=== PATIENT | female | born 1995 | race Caucasian/White ===

== ENCOUNTER 2017-02-03 22:15 | Emergency (ER) | payer MEDICAID ==
[~2017-02-03] VITALS: Ht 175.3 cm; Wt 92.0 kg
[~2017-02-03 22:15] MED LIST: AMOX500T PO; BUPR-175 PO; IBUP800T23 PO; LATU40TA PO; MMW SWISH-SPIT; SERT100 PO; XANA0.5T PO
[2017-02-03 22:18] VITALS: BP 141/85; PULSE 102; RESP 16; TEMP 98.8; O2SAT 99
[2017-02-03] MEDS ORDERED: ACYC200C66 PO (23:32)
[2017-02-03] MEDS ORDERED: CLOTR1%T TOPICAL (23:32)
--- NOTE | 2017-02-03 23:35 | PD ---
HPI Chief Complaint: Medical Clearance Time Seen by Provider: 23:25 Travel History International Travel<30 days: No Contact w/Intl Traveler<30days: No Traveled to known affect area: No History of Present Illness HPI 21-year-old female presents for evaluation. She reports that she developed a sore in her upper lip today. She also developed a circular rash on her left forearm. The rash is mildly itching, the sore on her lip mendoza some. She is around this problem in the past, no history of herpes labialis but she does report a history of herpes simplex infection of some sort. She was sent home from work today and encouraged to come here to get a note to return to work. She has no other complaints. PFSH Past Medical History Bipolar Disorder: Yes Anxiety: Yes Depression: Yes Diabetes: No Diminished Hearing: No Psychiatric: Yes Immunizations Current: Yes ?: Not LMP: TUBAL : 4 Para: 2 Miscarriage: 2 Ovarian Cysts: Yes Tubal Ligation: Yes Past Surgical History Section: No Social History Alcohol Use: No Tobacco Use: No Substance Use: No Allergies-Medications (Allergen,Severity, Reaction): Coded Allergies: PEANUTS (Verified Allergy, Severe, SWELLING, 02/03/17) Reported Meds & Prescriptions Reported Meds & Active Scripts Active Clotrimazole Topical (Clotrimazole) 1% Soln 1 Applic TOPICAL BID 21 Days Acyclovir 200 Mg Cap 200 Mg PO 5 TIMES A DAY 7 Days Ibuprofen 800 Mg Tab 800 Mg PO Q6H PRN Magic Mouthwash-Diphenhy Formula (Lidocaine/Diphenhydr/Alum/Mg/Simeth) Ml 5 Ml SWISH-SPIT Q3H PRN MAGIC MOUTHWASH=MIX 1/3 VISCOUS LIDOCAINE(80 ML), 1/3 MAALOX(80 ML),AND 1/3 BENADRYL(80 ML) TO EQUAL 240 ML TOTAL VOLUME. Amoxicillin 500 Mg Cap 500 Mg PO BID 10 Days Reported Wellbutrin (Bupropion HCl) 75 Mg Tab Unknown Dose PO DAILY Latuda (Lurasidone HCl) 40 Mg Tab 40 Mg PO DAILY Zoloft (Sertraline HCl) 100 Mg Tab 100 Mg PO DAILY Xanax 0.5 mg (Alprazolam) Alprazolam 0.5 mg Tab 1 Tab PO TID Review of Systems HENT: Positive: Other (lip sore) Skin: Positive Rash, Positive Itching Physical Exam Narrative GENERAL: Well-nourished female in no acute distress SKIN: Warm and dry. Singular annular lesion noted on the left forearm consistent with tinea corporis HEAD: Atraumatic. Normocephalic. EYES: Pupils equal and round. No scleral icterus. No injection or drainage. ENT: No nasal bleeding or discharge. Mucous membranes pink and moist. Singular vesicle lesion on the upper lip. NECK: Trachea midline. No JVD. Data Data Last Documented VS Vital Signs Date Time Temp Pulse Resp B/P Pulse Ox O2 Delivery O2 Flow Rate FiO2 02/03/17 22:18 98.8 102 16 141/85 99 Room Air MDM Medical Decision Making Medical Screen Exam Complete: Yes Emergency Medical Condition: Yes Medical Record Reviewed: Yes Differential Diagnosis Tinea corporis, pityriasis rosea, herpes labialis, contact dermatitis Narrative Course Examination reveals mild herpes labialis and tenia corporis. She is being discharged with acyclovir and clotrimazole cream. Diagnosis Primary Impression: Herpes labialis Additional Impression: Tinea corporis Departure Forms: Tests/Procedures, Work Release Enter return to work date: Feb 04, 2017 Additional Instructions: Medication as prescribed. Follow-up with primary care as needed and return for any emergent medical conditions. Med/Other Pt SpecificInfo: Prescription(s) given Scripts Clotrimazole Topical 1% Soln1 Applic TOPICAL BID 21 Days Ref 0 Prov:Raymond Betts MD 02/03/17 Acyclovir 200 Mg [id number] Mg PO 5 TIMES A DAY 7 Days Ref 0 Prov:Raymond Betts MD 02/03/17 Disposition: 01 DISCHARGE HOME Condition: Stable Ghulam Busch Feb 03, 2017 23:35
== END 2017-02-03 23:59 | disposition home or self-care (01) ==
LOC: NEPK 22:15
DX: B00.1 Herpesviral vesicular dermatitis (principal); B35.4 Tinea corporis
CPT/HCPCS: 99282

== ENCOUNTER 2017-09-28 07:35 | Emergency (ER) | payer MEDICAID ==
[~2017-09-28] VITALS: Ht 172.7 cm; Wt 91.5 kg
[~2017-09-28 07:35] MED LIST changes: +ACYC200C66 PO; -AMOX500T PO; -BUPR-175 PO; -IBUP800T23 PO; -LATU40TA PO; -MMW SWISH-SPIT; -SERT100 PO; -XANA0.5T PO
[2017-09-28 07:36] VITALS: BP 119/89; PULSE 100; RESP 20; TEMP 98.9; O2SAT 99
[2017-09-28] MEDS ORDERED: ONDANSETRON HCL 4 MG/2 ML VIAL IV PUSH ONE (08:15)
[2017-09-28] MEDS ORDERED: IBUPROFEN 800 MG TAB PO ONE (08:15)
[2017-09-28] MEDS ORDERED: SODIUM CHLOR 0.9% 1000 ML INJ 1,000 ML IV ONE (08:15)
--- NOTE | 2017-09-28 08:17 | PD ---
HPI Chief Complaint: GI Complaint Time Seen by Provider: 08:07 Travel History International Travel<30 days: No Contact w/Intl Traveler<30days: No Traveled to known affect area: No History of Present Illness HPI 22-year-old female presents to states cough congestion and nausea vomiting diarrhea. Patient states started 4 days ago. She states it started as a cough and congestion. She reports that she has pain under her eyes bilaterally. She states when she coughs and blows her nose there is blood tinged to the mucus. No reported fevers, chills. There is no reported ill contacts. The patient has no vaginal discharge or urinary symptoms. She has had her tubes tied previously. There are no other complaints at this time. PFSH Past Medical History Bipolar Disorder: Yes Anxiety: Yes Depression: Yes Diabetes: No Diminished Hearing: No Psychiatric: Yes Immunizations Current: Yes ?: Not LMP: IRREGULAR : 5 Para: 3 Miscarriage: 2 Ovarian Cysts: Yes Tubal Ligation: Yes Past Surgical History Section: No Social History Alcohol Use: No Tobacco Use: No Substance Use: No Allergies-Medications (Allergen,Severity, Reaction): Coded Allergies: peanut (Unverified Allergy, Severe, SWELLING, 09/28/17) Reported Meds & Prescriptions Reported Meds & Active Scripts Active Tussin Dm Max Adult Liq (Dextromethorphan-Guaifenesin Liq) 10-200 Mg/5 Ml Liq 5 Ml PO Q4H PRN Augmentin (Amoxicillin-Clavulanate) 875-125 Mg Tab 1 Tab PO BID 10 Days Review of Systems Except as stated in HPI: all other systems reviewed are Neg General / Constitutional: No: Fever, Chills Eyes: No: Diploplia, Redness HENT: Positive: Rhinorrhea, Congestion, Nosebleed (like tinged when she blows her nose.), Other (axillary sinus tenderness), No: Headaches, Neck Pain Cardiovascular: No: Chest Pain or Discomfort, Palpitations Respiratory: No: Cough, Shortness of Breath Genitourinary: No: Frequency, Dysuria, Discharge Musculoskeletal: No: Weakness, Pain Neurologic: No: Weakness, Dizziness, Headache Physical Exam Narrative GENERAL: Well-nourished, well-developed patient, in no acute distress. SKIN: Focused skin assessment warm/dry. HEAD: Normocephalic last atraumatic. EYES: No scleral icterus. No injection or drainage. Extraocular muscles were intact. There is tenderness in her maxillary sinus distribution bilaterally. No redness. NECK: Supple, trachea midline. CARDIOVASCULAR: Regular rate and rhythm without murmurs, gallops, or rubs. RESPIRATORY: Breath sounds equal bilaterally. No accessory muscle use. Mild rhonchi in the upper airways bilaterally. GASTROINTESTINAL: Abdomen soft, non-tender, nondistended. MUSCULOSKELETAL: No cyanosis, or edema. NEUROLOGICAL: Awake and alert. Cranial nerves II through XII intact. Motor grossly within normal limits. Five out of 5 muscle strength in all muscle groups. Normal speech. Data Data Last Documented VS Vital Signs Date Time Temp Pulse Resp B/P (MAP) Pulse Ox O2 Delivery O2 Flow Rate FiO2 09/28/17 09:15 70 16 117/60 (79) 98 Room Air 09/28/17 07:36 98.9 Orders Orders Complete Blood Count With Diff (09/28/17 08:07) Basic Metabolic Panel (Bmp) (09/28/17 08:07) Influenzae A/B Antigen (09/28/17 08:07) Chest, Single Ap (09/28/17 08:07) Iv Access Insert/Monitor (09/28/17 08:07) Ecg Monitoring (09/28/17 08:07) Oximetry (09/28/17 08:07) Sodium Chlor 0.9% 1000 Ml Inj (Ns 1000 M (09/28/17 08:15) Ibuprofen (Motrin) (09/28/17 08:15) Ondansetron Inj (Zofran Inj) (09/28/17 08:15) Labs Laboratory Tests Test 09/28/17 08:17 White Blood Count 11.4 TH/MM3 Red Blood Count 4.40 MIL/MM3 Hemoglobin 14.0 GM/DL Hematocrit 41.3 % Mean Corpuscular Volume 93.9 FL Mean Corpuscular Hemoglobin 31.9 PG Mean Corpuscular Hemoglobin Concent 34.0 % Red Cell Distribution Width 13.8 % Platelet Count 271 TH/MM3 Mean Platelet Volume 7.1 FL Neutrophils (%) (Auto) 80.8 % Lymphocytes (%) (Auto) 10.6 % Monocytes (%) (Auto) 7.8 % Eosinophils (%) (Auto) 0.5 % Basophils (%) (Auto) 0.3 % Neutrophils # (Auto) 9.2 TH/MM3 Lymphocytes # (Auto) 1.2 TH/MM3 Monocytes # (Auto) 0.9 TH/MM3 Eosinophils # (Auto) 0.1 TH/MM3 Basophils # (Auto) 0.0 TH/MM3 CBC Comment DIFF FINAL Differential Comment Blood Urea Nitrogen 12 MG/DL Creatinine 0.86 MG/DL Random Glucose 81 MG/DL Calcium Level 9.3 MG/DL Sodium Level 134 MEQ/L Potassium Level 4.3 MEQ/L Chloride Level 102 MEQ/L Carbon Dioxide Level 28.0 MEQ/L Anion Gap 4 MEQ/L Estimat Glomerular Filtration Rate 81 ML/MIN MDM Medical Decision Making Medical Screen Exam Complete: Yes Emergency Medical Condition: Yes Differential Diagnosis Maxillary sinusitis versus influenza versus bronchitis Narrative Course 22-year-old female presents today with complaints of sinus congestion and cough. The patient denies any fevers, chills. White count is slightly elevated. The patient has tenderness over her maxillary sinuses. The patient' s chest x-ray shows no evidence of acute infiltrate. She'll be treated with Augmentin for the sinus infection. She will also be given a prescription for Tussi DM with dextromethorphan. She is instructed to return if she develops any worsening symptoms. Diagnosis Primary Impression: Sinusitis Additional Impression: Bronchitis Additional Instructions: Return if feeling worse. Med/Other Pt SpecificInfo: Prescription(s) given Scripts Dextromethorphan-Guaifenesin Liq (Tussin Dm Max Adult Liq) 10-200 Mg/5 Ml Liq 5 ML PO Q4H Y for CHEST CONGESTION AND/OR COUGH, #120 ML 0 Refills Prov: Koffi Lake MD 09/28/17 Amoxicillin-Clavulanate (Augmentin) 875-125 Mg Tab 1 TAB PO BID for Infection for 10 Days, #20 TAB 0 Refills Prov: Koffi Lake MD 09/28/17 Disposition: 01 DISCHARGE HOME Condition: Stable Koffi Lake MD Sep 28, 2017 08:17
[2017-09-28 08:38] LABS: AUTOMATED NEUTROPHIL # 9.2 TH/MM3 (1.8-7.7); BASOPHIL % 0.3 % (0.0-2.0); EOSINOPHIL # 0.1 TH/MM3 (0-0.4); EOSINOPHIL % 0.5 % (0.0-4.0); HEMATOCRIT 41.3 % (35.0-46.0); HEMO FLAGS DIFF FINAL; LYMPH % 10.6 % (9.0-44.0); LYMPHOCYTE # 1.2 TH/MM3 (1.0-4.8); MEAN CELL VOLUME 93.9 FL (80.0-100.0); MEAN CORPUSCULAR HEMOGLOBIN 31.9 PG (27.0-34.0); MONO % 7.8 % (0.0-8.0); NEUT % 80.8 % (16.0-70.0); PLATELET COUNT 271 TH/MM3 (150-450); RED CELL DISTRIBUTION WIDTH 13.8 % (11.6-17.2); WHITE BLOOD COUNT 11.4 TH/MM3 (4.0-11.0)
--- NOTE | 2017-09-28 08:47 | RADRPT ---
EXAM DATE/TIME: 09/28/2017 08:32 [facility] COMPARISON: No previous studies available for comparison. INDICATIONS : Cough and sinus congestion. MEDICAL HISTORY : None. SURGICAL HISTORY : Tubal ligation. ENCOUNTER: Initial ACUITY: 4 - 6 days PAIN SCORE: 0/10 LOCATION: Bilateral chest FINDINGS: A single view of the chest demonstrates the lungs to be symmetrically aerated without evidence of mas s, infiltrate or effusion. The cardiomediastinal contours are unremarkable. Osseous structures are intact. CONCLUSION: No acute disease. Red Kovacs Jr., MD on September 28, 2017 at 8:44 Board Certified Radiologist. This report was verified electronically.
[2017-09-28 08:56] LABS: POTASSIUM 4.3 MEQ/L (3.5-5.1)
[2017-09-28 09:15] VITALS: BP 117/60; PULSE 70; RESP 16; O2SAT 98
[2017-09-28] MEDS ORDERED: AUGM875T3 PO (10:55)
[2017-09-28] MEDS ORDERED: DEXT5LIQ12 PO (10:55)
[2017-09-28 12:40] VITALS: BP 113/70
== END 2017-09-28 12:54 | disposition home or self-care (01) ==
LOC: NEPC 07:35
DX: J32.9 Chronic sinusitis, unspecified (principal); J40 Bronchitis, not specified as acute or chronic; R11.2 Nausea with vomiting, unspecified; R19.7 Diarrhea, unspecified; F31.9 Bipolar disorder, unspecified; F41.9 Anxiety disorder, unspecified
CPT/HCPCS: 71010; 80048; 85025; 87804; 96374; 99284; J2405; J7030

== ENCOUNTER 2018-03-02 14:54 | Emergency (ER) | payer MEDICAID ==
[~2018-03-02] VITALS: Ht 172.7 cm; Wt 81.8 kg
[~2018-03-02 14:54] MED LIST changes: -ACYC200C66 PO; +AUGM875T3 PO; +DEXT5LIQ12 PO
[2018-03-02 15:04] VITALS: BP 125/82; PULSE 71; RESP 16; TEMP 97.8; O2SAT 98
[2018-03-02 15:15] VITALS: BP 133/77; PULSE 83; RESP 16; TEMP 98.7; O2SAT 97
[2018-03-02] MEDS ORDERED: NAPROXEN SODIUM 550 MG TAB PO ONE (15:30)
[2018-03-02 16:05] LABS: BILIRUBIN, URINE NEG (NEG); BLOOD, URINE NEG (NEG); GLUCOSE,URINE NEG (NEG); KETONE, URINE NEG (NEG); MUCUS URINE MANY /lpf (OCC); NITRITE,URINE NEG (NEG); SQUAMOUS EPITHELIAL CELL URINE 12 /hpf (0-5); URINE COLOR YELLOW (YELLW/STRAW); URINE LEUKOCYTE ESTERASE NEG (NEG)
[2018-03-02] MEDS ORDERED: METR-1 PO (16:13)
--- NOTE | 2018-03-02 16:13 | PD ---
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 She completed a course of Bactrim but her symptoms persisted. She also says she has had some vomiting. She denies any fevers or chills. She has had one sexual partner in the past 6 months. PFSH Past Medical History Bipolar Disorder: Yes Anxiety: Yes Depression: Yes Diabetes: No Diminished Hearing: No Medical other: Yes (PTSD) Psychiatric: Yes Immunizations Current: Yes Tetanus Vaccination: < 5 Years Influenza Vaccination: No ?: Not LMP: 01/29/2018 : 5 Para: 3 Miscarriage: 2 Ectopic : Yes Ovarian Cysts: Yes Tubal Ligation: Yes Past Surgical History Section: No Social History Alcohol Use: No Tobacco Use: No Substance Use: No Allergies-Medications (Allergen,Severity, Reaction): Coded Allergies: peanut (Unverified Allergy, Severe, SWELLING, 09/28/17) Reported Meds & Prescriptions Reported Meds & Active Scripts Active Flagyl (Metronidazole) 500 Mg Tab 500 Mg PO BID 7 Days Tussin Dm Max Adult Liq (Dextromethorphan-Guaifenesin Liq) 10-200 Mg/5 Ml Liq 5 Ml PO Q4H PRN Augmentin (Amoxicillin-Clavulanate) 875-125 Mg Tab 1 Tab PO BID 10 Days Review of Systems Except as stated in HPI: all other systems reviewed are Neg Physical Exam Narrative GENERAL:Well appearing, no acute distress SKIN: Focused skin assessment warm and dry. HEAD: Atraumatic. Normocephalic. EYES: Pupils equal and round. No injection or drainage. ENT: Moist mucous membranes NECK: Trachea midline. CARDIOVASCULAR: Regular rate and rhythm. No murmur appreciated. RESPIRATORY: Clear to auscultation. Breath sounds equal bilaterally. GASTROINTESTINAL: Abdomen soft, tender to palpation in the suprapubic region with no rebound or guarding. : White discharge in the vault with mild cervical motion tenderness. MUSCULOSKELETAL: No obvious deformities. NEUROLOGICAL: Awake and alert. No obvious cranial nerve deficits. Moving all extremities. PSYCHIATRIC: Appropriate mood and affect; insight and judgment normal. Data Data Last Documented VS Vital Signs Date Time Temp Pulse Resp B/P (MAP) Pulse Ox O2 Delivery O2 Flow Rate FiO2 03/02/18 15:15 98.7 83 16 133/77 (95) 97 Room Air Orders Orders Urinalysis - C+S If Indicated (03/02/18 15:28) Gc And Chlamydia Pcr (03/02/18 15:28) Wet Prep Profile (03/02/18 15:28) Naproxen Sodium (Anaprox Ds) (03/02/18 15:30) Ed Discharge Order (03/02/18 16:14) Azithromycin Powd Pack (Zithromax Powd P (03/02/18 16:15) Ceftriaxone Inj (Rocephin Inj) (03/02/18 16:15) Lidocaine 1% Inj (50 Ml) (Xylocaine 1% I (03/02/18 16:15) Labs Laboratory Tests Test 03/02/18 13:37 Urine Color YELLOW Urine Turbidity HAZY Urine pH 6.0 Urine Specific [place] 1.031 Urine Protein TRACE mg/dL Urine Glucose (UA) NEG mg/dL Urine Ketones NEG mg/dL Urine Occult Blood NEG Urine Nitrite NEG Urine Bilirubin NEG Urine Urobilinogen LESS THAN 2.0 MG/DL Urine Leukocyte Esterase NEG Urine RBC 1 /hpf Urine WBC 4 /hpf Urine Squamous Epithelial Cells 12 /hpf Urine Mucus MANY /lpf Microscopic Urinalysis Comment CULT NOT INDICATED Clue Cells (Wet Prep) PRESENT Vaginal Trichomonas (Wet Prep) NONE SEEN Vaginal Yeast (Wet Prep) NONE SEEN MDM Medical Decision Making Medical Screen Exam Complete: Yes Emergency Medical Condition: Yes Interpretation(s) Wet prep demonstrates bacterial vaginosis Differential Diagnosis Urinary tract infection, bacterial vaginosis, PID, pyelonephritis Narrative Course This is a 23-year-old female who presents to the emergency department with some lower abdominal discomfort, vaginal discharge and dysuria. Patient is well- appearing and has a benign abdomen. She has a history of a BTL so is unlikely. Wet prep demonstrates clue cells. Patient will be treated with Flagyl and also empirically treated for cervicitis. Otherwise I think she is appropriate for outpatient management. Diagnosis Primary Impression: Bacterial vaginosis Patient Instructions: General Instructions Additional Instructions: If you develop fever, chills, severe abdominal pain, persistent vomiting or inability to eat return to the emergency department. Your pelvic exam today did not include a Pap smear. It is important to followup with a mathematical technician on a yearly basis to be tested for cervical cancer as we do not do that from the emergency department. If there is a concern that you have sexually transmitted disease, your partner should be tested. You should followup with your mathematical technician or with the health department to get tested for other sexually transmitted diseases like HIV and syphilis, as we do not test for these in the emergency department Med/Other Pt SpecificInfo: Prescription(s) given Scripts Metronidazole (Flagyl) 500 Mg Tab 500 MG PO BID for Infection for 7 Days, #14 TAB 0 Refills Prov: Perlita Castro MD 03/02/18 Disposition: 01 DISCHARGE HOME Condition: Stable Perlita Castro MD March 02, 2018 16:13
[2018-03-02] MEDS ORDERED: AZITHROMYCIN PWD FOR SUSP 1 GM PACKET PO ONE (16:15)
[2018-03-02] MEDS ORDERED: LIDOCAINE HCL 1% 50 ML VIAL IM ONE (16:15)
[2018-03-02] MEDS ORDERED: cefTRIAXone 250 MG VIAL IM ONE (16:15)
[2018-03-02] MEDS ORDERED: ZOFR4TAB3 SL (16:51)
== END 2018-03-02 17:01 | disposition home or self-care (01) ==
LOC: NEPC 14:54
DX: N76.0 Acute vaginitis (principal); B96.89 Other specified bacterial agents as the cause of diseases classified elsewhere
CPT/HCPCS: 81001; 87210; 87491; 87591; 96372; 99283; J0696

== ENCOUNTER 2018-04-21 10:16 | Emergency (ER) | payer SELFPAY ==
[~2018-04-21] VITALS: Ht 172.7 cm; Wt 90.0 kg
[~2018-04-21 10:16] MED LIST changes: +METR-1 PO; +ZOFR4TAB3 SL
[2018-04-21 10:20] VITALS: BP 131/84; PULSE 85; RESP 16; TEMP 98.6; O2SAT 99
[2018-04-21] MEDS ORDERED: CEPHALEXIN MONOHYDRATE 500 MG CAP PO ONE (11:15)
[2018-04-21] MEDS ORDERED: ONDANSETRON ODT 4 MG TAB PO ONE (11:15)
[2018-04-21] MEDS ORDERED: IBUPROFEN 600 MG TAB PO ONE (11:15)
[2018-04-21] MEDS ORDERED: SULFAMETHOXAZOLE-TRIMETHOPRIM DS 800-160 MG TAB PO ONE (11:15)
[2018-04-21] MEDS ORDERED: IBUP-232 PO (11:16)
[2018-04-21] MEDS ORDERED: ZOFR4TAB PO (11:16)
[2018-04-21] MEDS ORDERED: CEPH-460 PO (11:16)
[2018-04-21] MEDS ORDERED: BACT800T5 PO (11:16)
--- NOTE | 2018-04-21 11:25 | PD ---
HPI Chief Complaint: Skin Problem Time Seen by Provider: 11:07 Travel History International Travel<30 days: No Contact w/Intl Traveler<30days: No Traveled to known affect area: No History of Present Illness HPI 23-year-old female presents emergency department with several day history of right lower jones wound with localized tenderness, warmth, erythema, and swelling. Patient states she was seen in [facility], and given an ointment which she could not afford as it was not covered by her insurance. Patient states she may have cut herself shaving, but feels it is an ingrown hair. She has had some drainage from the central area. Pain is currently 8 out of 10 she has pain with walking. She has not taken anything else for it. Patient denies fever, chills, or other constitutional symptoms. She is allergic to peanuts. PFSH Past Medical History Bipolar Disorder: Yes Anxiety: Yes Depression: Yes Diabetes: No Diminished Hearing: No Psychiatric: Yes Immunizations Current: Yes ?: Not : 5 Para: 3 Miscarriage: 2 Ectopic : Yes Ovarian Cysts: Yes Tubal Ligation: Yes Past Surgical History Section: No Social History Alcohol Use: No Tobacco Use: No Substance Use: No Allergies-Medications (Allergen,Severity, Reaction): Coded Allergies: peanut (Unverified Allergy, Severe, SWELLING, 09/28/17) Reported Meds & Prescriptions Reported Meds & Active Scripts Active Ibuprofen 600 Mg Tab 600 Mg PO Q6H PRN Keflex (Cephalexin) 500 Mg Capsule 500 Mg PO Q8H 7 Days Bactrim DS (Sulfamethoxazole-Trimethoprim) 800-160 Mg Tab 1 Tab PO BID Zofran (Ondansetron HCl) 4 Mg Tab 4 Mg PO Q6HR PRN Zofran Odt (Ondansetron Odt) 4 Mg Tab 4 Mg SL Q6HR PRN Flagyl (Metronidazole) 500 Mg Tab 500 Mg PO BID 7 Days Tussin Dm Max Adult Liq (Dextromethorphan-Guaifenesin Liq) 10-200 Mg/5 Ml Liq 5 Ml PO Q4H PRN Augmentin (Amoxicillin-Clavulanate) 875-125 Mg Tab 1 Tab PO BID 10 Days Review of Systems Except as stated in HPI: all other systems reviewed are Neg General / Constitutional: No: Fever Eyes: No: Visual changes HENT: No: Headaches Cardiovascular: No: Chest Pain or Discomfort Respiratory: No: Shortness of Breath Gastrointestinal: No: Abdominal Pain Genitourinary: No: Dysuria Musculoskeletal: No: Pain Skin: Positive Lesions (See history of present illness), No Rash Neurologic: No: Weakness Psychiatric: No: Depression Endocrine: No: Polydipsia Hematologic/Lymphatic: No: Easy Bruising Physical Exam Narrative GENERAL: Patient appears in mild to moderate distress. SKIN: Warm and dry. Normal color. Normal turgor. Patient has what appears to be a folliculitis to the right medial lower jones just above the ankle with localized swelling, warmth, erythema, and tenderness. There is no palpable deep abscess at this time. There is a central lesion with serous bloody drainage. There is no streaking. HEAD: Atraumatic. Normocephalic. EYES: Pupils equal and round. No scleral icterus. No injection or drainage. ENT: No nasal bleeding or discharge. Mucous membranes pink and moist. Pharynx is clear. Airway is patent NECK: Trachea midline. Supple and nontender. CARDIOVASCULAR: Regular rate and rhythm. RESPIRATORY: No accessory muscle use. Clear to auscultation. Breath sounds equal bilaterally. MUSCULOSKELETAL: Extremities without clubbing, cyanosis, or edema. No obvious deformities. Range of motion is intact although limited by pain in the right lower extremity. NEUROLOGICAL: Awake and alert. No obvious cranial nerve deficits. Motor grossly within normal limits. Five out of 5 muscle strength in the arms and legs. Normal speech. PSYCHIATRIC: Appropriate mood and affect; insight and judgment normal. Data Data Last Documented VS Vital Signs Date Time Temp Pulse Resp B/P (MAP) Pulse Ox O2 Delivery O2 Flow Rate FiO2 04/21/18 10:20 98.6 85 16 131/84 (100) 99 Orders Orders Ondansetron Odt (Zofran Odt) (04/21/18 11:15) Sulfamet-Trimeth Ds 800-160 Mg (Bactrim (04/21/18 11:15) Cephalexin (Keflex) (04/21/18 11:15) Ibuprofen (Motrin) (04/21/18 11:15) Wound Culture And Gram Stain (04/21/18 11:19) [facility] Medical Decision Making Medical Screen Exam Complete: Yes Emergency Medical Condition: Yes Differential Diagnosis Cellulitis. Folliculitis. Early abscess. Narrative Course Patient is given first dose of Bactrim DS p.o. 1. Patient is given Keflex 500 mg p.o. now per Patient is given 600 mg ibuprofen p.o. now. Patient is given Zofran 4 mg p.o. now for Patient continued on Bactrim DS twice daily 7 days. Patient continued on Keflex 500 mg 3 times daily for 7 days. Patient is given ibuprofen 600 mg 4 times daily #40. Patient is given Zofran 4 mg every 6 hours as needed #12. Patient is instructed to keep the area elevated, use hot compresses, and wash with soap and water twice daily and covered with dressing Wound culture was obtained and sent to the lab. Patient is to follow-up if symptoms continue to worsen as discussed. Diagnosis Primary Impression: Cellulitis of right lower extremity without foot Additional Impression: Folliculitis Patient Instructions: Cellulitis (ED), General Instructions Additional Instructions: Patient continued on Bactrim DS twice daily 7 days. Patient continued on Keflex 500 mg 3 times daily for 7 days. Patient is given ibuprofen 600 mg 4 times daily #40. Patient is given Zofran 4 mg every 6 hours as needed #12. Patient is instructed to keep the area elevated, use hot compresses, and wash with soap and water twice daily and covered with dressing Wound culture was obtained and sent to the lab. Patient is to follow-up if symptoms continue to worsen as discussed. Scripts Ibuprofen (Ibuprofen) 600 Mg Tab 600 MG PO Q6H Y for Pain/Inflammation, #40 TAB 0 Refills Prov: Mario Lemons MD 04/21/18 Cephalexin (Keflex) 500 Mg Capsule 500 MG PO Q8H for Infection for 7 Days, #21 CAP 0 Refills Prov: Mario Lemons MD 04/21/18 Sulfamethoxazole-Trimethoprim (Bactrim DS) 800-160 Mg Tab 1 TAB PO BID for Infection, #14 TAB 0 Refills Prov: Mario Lemons MD 04/21/18 Ondansetron (Zofran) 4 Mg Tab 4 MG PO Q6HR Y for NAUSEA OR VOMITING, #12 TAB 0 Refills Prov: Mario Lemons MD 04/21/18 Disposition: 01 DISCHARGE HOME Condition: Stable Osman Moreno Apr 21, 2018 11:25
== END 2018-04-21 11:45 | disposition home or self-care (01) ==
LOC: NEPD 10:16
DX: L03.115 Cellulitis of right lower limb (principal); L73.9 Follicular disorder, unspecified
CPT/HCPCS: 86403; 87070; 87186; 99283